=== PATIENT | male | born 1960 | race Two or more races ===

== ENCOUNTER 2018-03-18 19:37 | Emergency (ER) ==
[~2018-03-18] VITALS: Ht 193 cm; Wt 105.9 kg
[2018-03-18 20:21] LABS: BASOPHIL (%) 0.5 % (0-1); EOSINOPHIL (%) 2.4 % (0-5); EOSINOPHIL COUNT 0.2 K/uL (0-0.3); HEMATOCRIT 43.3 % (38.0-50.0); HEMOGLOBIN 15.9 G/DL (12.5-16.6); IMMATURE GRANULOCYTE (%) 0.7 % (0.0-0.7); LYMPHOCYTE (%) 30.7 % (15-42); LYMPHOCYTE COUNT 1.9 K/uL (1.0-2.8); MCH 32.4 PG (29.0-34.0); MCHC 36.7 G/DL (30.0-36.0); MCV 88.4 FL (86-99); MONOCYTE (%) 9.6 % (3-12); MONOCYTE COUNT 0.6 K/uL (0-0.8); NEUTROPHIL (%) 56.1 % (45-76); NEUTROPHIL COUNT 3.4 K/uL (1.8-6.4); PLATELET COUNT 188 K/uL (156-360); RBC DIS.WIDTH-CV 12.3 % (11.8-14.6); RBC DIS.WIDTH-SD 39.9 % (39-53); WHITE BLOOD COUNT 6.1 K/uL (4.1-10.2)
[2018-03-18 20:30] LABS: CHLORIDE 109 mEq/L (99-109); POTASSIUM 3.9 mEq/L (3.7-5.4); SODIUM 140 mEq/L (136-147)
[2018-03-18 20:33] LABS: GLUCOSE 91 mg/dL (70-99); TOTAL PROTEIN 6.3 g/dL (6.4-8.3)
[2018-03-18 20:34] LABS: TOTAL BILIRUBIN 0.8 mg/dL (0.0-1.0)
[2018-03-18 20:36] LABS: ALKALINE PHOSPHATASE 58 IU/L (3-129); CREATININE 0.8 mg/dL (0.6-1.3)
[2018-03-18 20:37] LABS: UREA NITROGEN (BUN) 19 mg/dL (9-23)
[2018-03-18 20:38] LABS: AST (GOT) 21 IU/L (2-34); DIRECT BILIRUBIN 0.3 mg/dL (0.0-0.3)
[2018-03-18 20:39] LABS: ALT (GPT) 20 IU/L (3-49)
[2018-03-18 20:49] LABS: GFR ESTIMATE (CALCULATED) > 59 mL/min/ (58.99-99999)
[2018-03-19 11:32] LABS: HEPATITIS B SURFACE ANTIGEN Nonreactive; HEPATITIS C ANTIBODY Nonreactive
[2018-03-19 11:33] LABS: HEPATITIS B SURFACE ANTIBODY REACTIVE
[2018-03-19 11:34] LABS: ANTI-HEPATITIS B CORE (IGM) Nonreactive
[2018-03-19 11:35] LABS: HIV-1/2 AB/AG COMBO Nonreactive
== END 2018-03-18 20:25 | disposition home or self-care (01) ==
LOC: EME 19:37
PROVIDERS: Nurse Practitioner Family
DX: S61.232A Puncture wound without foreign body of right middle finger without damage to nail, initial encounter (principal); Z77.21 Contact with and (suspected) exposure to potentially hazardous body fluids; W26.8XXA Contact with other sharp object(s), not elsewhere classified, initial encounter; Y99.0 Civilian activity done for income or pay
CPT/HCPCS: 80048; 80076; 85025; 86705; 86706; 86803; 87340; 87389; 99281; 99284